=== PATIENT | female | born 1975 | race Two or more races ===

== ENCOUNTER 2024-12-20 08:30 | Inpatient (IN) | payer OTHER ==
[~2024-12-20] VITALS: Ht 162.6 cm; Wt 70.3 kg
[2024-12-20] MEDS ORDERED: SYNTHROID50 MCG (09:47)
[2024-12-20 09:51] LABS: PH,URINE 6.5 (5.0-8.0); URINE APPEARANCE Clear; URINE BILIRRUBIN Negative (NEGATIVE); URINE BLOOD Small; URINE COLOR Yellow; URINE GLUCOSE Negative (NEGATIVE); URINE KETONE Negative (NEGATIVE); URINE LEUKOCYTE Negative; URINE NITRATE Negative; URINE PROTEIN Negative (NEGATIVE)
[2024-12-20 09:54] VITALS: BP 150/82
[2024-12-20 09:56] LABS: URINE BACTERIA 6.1 uL (0.0-1933); URINE EPITHELIAL CELLS 3.1 uL (0.0-38.8); URINE RBC 28.8 uL (0.0-20.8); URINE WBC 2.5 uL (0.0-23.2)
[2024-12-20 09:58] LABS: HEMATOCRIT 38.7 % (36.0-45.00); HEMOGLOBIN 12.9 g/dL (12.0-15.00); MEAN CELL VOLUME 83.3 fL (80.00-100.00); MEAN CORPUSCULAR HEMOGLOBIN 27.8 pg (27.00-32.0); MEAN CORPUSCULAR HGB CONC 33.4 g/dl (32.0-36.0); PLATELET COUNT 269 K/uL (150-450); RED BLOOD COUNT 4.65 M/uL (4.00-6.00); RED CELL DISTRIBUTION WIDTH 15.8 % (11.5-14.5)
[2024-12-20 10:08] LABS: INR 1.04; PARTIAL THROMBOPLASTIN TIME 25.4 SECONDS (22.0-34.0); PROTHROMBIN TIME 11.3 SECONDS (9.0-11.5)
[2024-12-20 10:12] LABS: URINE CAST 0.14 uL (0.0-1.40)
[2024-12-20 10:53] LABS: ALBUMIN 3.7 gm/dL (3.4-5.0); BILIRUBIN TOTAL 0.65 mg/dL (0.3-1.2); CREATININE SERUM 0.71 mg/dL (0.55-1.02); GFR 87.86; GLOBULINA 3.8 G/DL (2.4-3.5); POTASSIUM 4.26 mEq/L (3.5-5.1); TOTAL PROTEIN 7.5 gm/dL (6.4-8.2)
[2024-12-20 12:46] LABS: RH POSITIVE
[2024-12-26] MEDS ORDERED: POVIDONE-IODINE 118 ML BOTT TOP ONE (12:18)
[2024-12-26] MEDS ORDERED: BUPIVACAINE HCL/MPF 0.5% 30ML VIAL ONE (12:19)
[2024-12-26] MEDS ORDERED: CEFAZOLIN SODIUM 1,000 MG VIAL ONE (12:35)
[2024-12-26] MEDS ORDERED: DIPHENHYDRAMINE HCL 50 MG/ML VIAL 1ML ONE (12:36)
[2024-12-26] MEDS ORDERED: TRANEXAMIC ACID 100MG/1ML (1000MG) AMPUL IV ONE (14:30)
[2024-12-26] MEDS ORDERED: RINGERS SOLUTION,LACTATED 1,000 ML IV SCH (19:45)
[2024-12-26] MEDS ORDERED: KETOROLAC TROMETHAMINE 30 MG VIAL IV SCH (20:00)
[2024-12-26] MEDS ORDERED: ACETAMINOPHEN 500 MG GEL..CAP PO SCH (20:00)
[2024-12-26] MEDS ORDERED: GABAPENTIN 300 MG CAPSULE PO SCH (21:00)
[2024-12-26] MEDS ORDERED: KETOROLAC TROMETHAMINE 30 MG VIAL ONE (21:27)
[2024-12-26 22:08] VITALS: BP 142/7
[2024-12-27] VITALS: BP 121/71
[2024-12-27 05:03] LABS: HEMATOCRIT 33.3 % (36.0-45.00); MEAN CELL VOLUME 84.6 fL (80.00-100.00); MEAN CORPUSCULAR HEMOGLOBIN 27.7 pg (27.00-32.0); MEAN CORPUSCULAR HGB CONC 32.7 g/dl (32.0-36.0); PLATELET COUNT 195 K/uL (150-450); RED BLOOD COUNT 3.93 M/uL (4.00-6.00); RED CELL DISTRIBUTION WIDTH 15.4 % (11.5-14.5)
[2024-12-27 05:23] LABS: HEMOGLOBIN 10.9 g/dL (12.0-15.00)
[2024-12-27 08:00] VITALS: BP 129/58
== END 2024-12-27 10:56 | disposition home or self-care (01) | DRG 743 ==
LOC: EDSTATUS 08:30 → ADM 08:30 → OB/GYN 12-26 08:30 → O/R 12-26 08:34 → OB/GYN 12-26 08:34
PROVIDERS: ADMIT Student in an Organized Health Care Education/Training Program; ATTEND Student in an Organized Health Care Education/Training Program
PROC: 0UT74ZZ Resection of Bilateral Fallopian Tubes, Percutaneous Endoscopic Approach (ICD-10-PCS; 2024-12-26)
PROC: 0UT04ZZ Resection of Right Ovary, Percutaneous Endoscopic Approach (ICD-10-PCS; 2024-12-26)
PROC: 0DNW4ZZ Release Peritoneum, Percutaneous Endoscopic Approach (ICD-10-PCS; 2024-12-26)
PROC: 0TNB4ZZ Release Bladder, Percutaneous Endoscopic Approach (ICD-10-PCS; 2024-12-26)
PROC: 0TN64ZZ Release Right Ureter, Percutaneous Endoscopic Approach (ICD-10-PCS; 2024-12-26)
PROC: 0TN74ZZ Release Left Ureter, Percutaneous Endoscopic Approach (ICD-10-PCS; 2024-12-26)
PROC: 0WBH4ZZ Excision of Retroperitoneum, Percutaneous Endoscopic Approach (ICD-10-PCS; 2024-12-26)
PROC: 0TJB8ZZ Inspection of Bladder, Via Natural or Artificial Opening Endoscopic (ICD-10-PCS; 2024-12-26)
PROC: 0UT94ZZ Resection of Uterus, Percutaneous Endoscopic Approach (ICD-10-PCS; principal; 2024-12-26 09:45)
DX: D25.2 Subserosal leiomyoma of uterus (principal); N80.03 Adenomyosis of the uterus; R10.2 Pelvic and perineal pain; N94.6 Dysmenorrhea, unspecified; N80.101 Endometriosis of right ovary, unspecified depth; N80.201 Endometriosis of right fallopian tube, unspecified depth; N80.399 Endometriosis of the pelvic peritoneum, other specified sites, unspecified depth

== ENCOUNTER 2025-02-05 17:53 | Emergency (ER) | payer OTHER ==
[~2025-02-05] VITALS: Ht 162.6 cm; Wt 70.3 kg
[~2025-02-05 17:53] MED LIST: KETO10TA2 PO; NORFLEX100MG PO; SYNTHROID50 MCG
[2025-02-05] MEDS ORDERED: CEFTRIAXONE SODIUM 1,000 MG VIAL IV ONE (18:45)
[2025-02-05] MEDS ORDERED: 0.9 % SODIUM CHLORIDE 1,000 ML IV SCH (18:45)
[2025-02-05 19:10] LABS: HEMATOCRIT 35.2 % (36.0-45.00); HEMOGLOBIN 11.4 g/dL (12.0-15.00); MEAN CELL VOLUME 80.6 fL (80.00-100.00); MEAN CORPUSCULAR HEMOGLOBIN 26.1 pg (27.00-32.0); MEAN CORPUSCULAR HGB CONC 32.4 g/dl (32.0-36.0); PLATELET COUNT 299 K/uL (150-450); RED BLOOD COUNT 4.36 M/uL (4.00-6.00); RED CELL DISTRIBUTION WIDTH 15.8 % (11.5-14.5)
[2025-02-05 19:40] LABS: ALBUMIN 3.5 gm/dL (3.4-5.0); BILIRUBIN TOTAL 0.35 mg/dL (0.3-1.2); CALCIUM 8.9 mg/dL (8.5-10.1); CREATININE SERUM 0.7 mg/dL (0.55-1.02); GFR 89.31; GLOBULINA 4.8 G/DL (2.4-3.5); POTASSIUM 3.89 mEq/L (3.5-5.1); TOTAL PROTEIN 8.3 gm/dL (6.4-8.2)
[2025-02-05 20:49] LABS: URINE APPEARANCE Turbid; URINE BILIRRUBIN Small (NEGATIVE); URINE BLOOD Small; URINE COLOR Red; URINE GLUCOSE Negative (NEGATIVE); URINE KETONE Negative (NEGATIVE); URINE LEUKOCYTE Large; URINE NITRATE Positive; URINE PROTEIN 30 (NEGATIVE); URINE UROBILINOGEN 0.2 E.U./dl
[2025-02-05 20:50] LABS: URINE RBC > 10558.9 uL (0.0-20.8); URINE WBC 86.6 uL (0.0-23.2)
[2025-02-05 20:51] LABS: URINE BACTERIA 1820 uL (0.0-1933); URINE CRYSTALS FEW /HPF; URINE YEAST FEW /hpf
[2025-02-05] MEDS ORDERED: BACTRIM DS TAB1 EACH PO (22:13)
== END 2025-02-05 22:23 | disposition home or self-care (01) ==
LOC: ER 17:56
PROVIDERS: General Practice
DX: N39.0 Urinary tract infection, site not specified (principal); R10.9 Unspecified abdominal pain; E03.8 Other specified hypothyroidism